=== PATIENT | female | born 1945 | race Caucasian/White ===

== ENCOUNTER 2017-03-08 06:55 | Day surgery (SDC) | payer MEDICARE, OTHER ==
[~2017-03-08] VITALS: Ht 167.6 cm; Wt 104.3 kg
[~2017-03-08 06:55] MED LIST: ALLEGRA ALLERGY60 MG PO; BACTRIM 400-801 EACH PO; COMBIVENT RESPIM4 GM INH; FENOFIBRATE160 MG PO; LEVOTHYROXINE125 MCG PO; METOPROLOL TART50 MG PO; MULTIVITAMINS1 EAC7 PO; OXYCODON-ACETA1 EAC2 PO; PAROXETINE HCL20 MG PO; PERCOCET 7.5-31 EACH PO; SULFAMETHOXAZO1 EAC1 PO; TRIAMTERENE-HC1 EAC1 PO; VITAMIN B12-FO1 EACH PO; ZYRTEC10 MG PO
--- NOTE | 2017-03-08 10:10 | NUR ---
03/08/17 1010 Antonella Hernandez 1004 PATIENT ARRIVES TO PACU WITH ORAL AIRWAY IN PLACE, OPENS EYES TO VERBAL STIMULI. MASK AT 12 LITERS. 1006 ORAL AIRWAY REMOVED. 1009 OXYGEN DECREASED TO 8LITERS VIA MASK. PATIENT SHAKES HEAD NO TO PAIN THEN BACK TO SLEEP.
[2017-03-08] MEDS ORDERED: OXYCODON-ACETA1 EAC2 PO (10:26)
[2017-03-08] MEDS ORDERED: MAPAP325 MG PO (10:26)
--- NOTE | 2017-03-08 10:47 | NUR ---
PT IS BACK TO DS FROM PACU. PT HAS PILLOW TO ABDOMEN IN CASE OF NEED TO COUGH. SISTER IS AT THE BEDSIDE. CALL LIGHT WITHIN REACH. NO C/O'S AT THIS TIME. WILL REASSESS WITHIN THE HOUR. WATER ON BEDSIDE TABLE.
--- NOTE | 2017-03-08 11:55 | NUR ---
PT SLEEP UPON ENTERING THE ROOM. PT'S SISTER IS AT THE BEDSIDE. PT DENIES BEING HUNGRY OR NEEDING TO URINATE. PT INFORMED THAT IN ORDER TO DC SHE NEEDS TO HAVE AT LEAST A SNACK AND URINATE AT LEAST 100 MLS. PT THEN ASKS FOR JELLO. PT'S SISTER STEPPED OUT OF ROOM FOR A WHILE TO WARM UP OUTSIDE. CALL LIGHT WITHIN REACH. NO OTHER C/O'S AT THIS TIME. WILL REASSESS WITHIN THE HOUR.
--- NOTE | 2017-03-08 12:42 | NUR ---
PT IS A&O READY TO GO HOME AND SLEEP IN HER OWN BED. SISTER IS AT THE BEDSIDE. CALL LIGHT WITHIN REACH. NO OTHER C/O'S AT THIS TIME. WILL REASSESS WITHIN THE HOUR.
--- NOTE | 2017-03-08 13:05 | NUR ---
LE 1255: PT ABLE TO VOID GREATER THAN 100ML. NOT ALL URINE MADE IT INTO THE HAT. PT HAS MET ALL DC CRITERIA. DC INSTRUCTIONS ARE GIVEN IN FRONT OF SISTER, QUESTIONS ARE ASKED AND ANSWERED. PT DRESSES HERSELF AND GIVEN A WHEELCHAIR RIDE TO CAR.
--- NOTE | 2017-03-08 13:12 | NUR ---
PT WELCOMED ME TO HER ROOM. HER SISTER FROM ID IS HERE FOR SUPPORT. SHE IS BACK TO HAVE ANOTHER HERNIA REPAIRED. SHE SEEMED TO HAVE A GOOD ATTITUDE, FEELING GOOD OTHERWISE, AND PLEASED HER SIS IS HERE. SHE SEEMED PREPARED, NO REAL QUESTIONS AND FELT CONFIDENT IN THE STAFF CARING FOR HER TODAY. PT REQUESTED PRAYER, WILL FOLLOW NEEDED
--- NOTE | 2017-03-10 10:32 | OR ---
[facility] [address] [place], [place] [address] Signed DATE OF SERVICE: 03/08/2017 PREOPERATIVE DIAGNOSES: Incisional hernia above the umbilicus. Obesity. POSTOPERATIVE DIAGNOSES: Incisional hernia above the umbilicus. Obesity PROCEDURE PERFORMED: Repair of incisional hernia. Implantation of Prolene mesh (underlay properitoneal technique). SURGEON: Norm Camejo MD. ANESTHESIA: General endotracheal (Norm Candelaria CRNA) and local 20 mL 0.25% Marcaine with epinephrine. INDICATION: This 71-year-old white woman has undergone incisional he rnia repair by me in the past and the area inferior to the umbilicus. This was performed a year ago in February 2016. She now notes a bulge well above the area of previous hernia repair. She has had no constipation or urinary outlet obstructive symptoms or chronic cough. She does have obesity weighing 240 pounds and 5 feet 5 inches tall with a BMI of 39.9. She is admitted at this time to undergo repair of this hernia. Understand the risks of bleeding, infection, recurrence and so on. FINDINGS: A distinct hernia sac was noted cephalad to the umbilicus proper. The area of previous mesh repair showed a firm fibrotic area at the region of the umbilicus and below it, which was very secure. The fascial defect in aggregate was probably 4-5 cm. The area of the properitoneal space was freed with peritoneal and omentum as a barrier to mesh to the intraabdominal contents. The mesh was secured in an underlay technique with interrupted Prolene sutures with Prolene pledgets. The resulting defect was less than 2 cm. DESCRIPTION OF PROCEDURE: The patient brought to the operating room, given a general endotracheal anesthetic. She received preoperative antibiotics. Sequential compression device, stockings, and heparin Electronically Signed By: NORM CAMEJO MD 03/10/17 1032 PATIENT NAME: STEVIE DE LA CRUZ OPERATIVE REPORT DATE OF : 45 PHYSICIAN: NORM CAMEJO MD REPORT #: [id number] REPORT IS CONFIDENTIAL AND NOT TO BE RELEASED WITHOUT AUTHORIZATION [facility] [address] [place], [place] [address] Signed subcutaneously. The abdomen was prepared with a chlorhexidine solu tion and draped sterilely. An incision was made cephalad to the umbilicus and dissection carried through the dermis and subcutaneous tissue were quickly encountered was a hernia sac. This was bluntly from surrounding soft tissue of the abdominal wall. Dissection was carried down to the fascial layer, where a firm fibrotic area of the umbilicus and inferior to it was noted. The area cephalad represented the hernia area. This was freed from the surrounding soft tissue more fully and the fascial edge is grasped with Anna clamps, and using blunt dissection. The properitoneal space developed. There were enough adhesions and scar tissue that entered to the hernia sac, did occur cephalad in this area, revealing underlying omentum. In those areas to the right side of the abdomen, the properitoneal space was more fully developed. Maintaining the peritoneal envelope as best could be. The hernia sac itself was in continuity with this of course and was separate and thickened. This was excised as reduction of this hernia sac might result in internal herniation. The defect of the peritoneal layer, was secured with 2-0 Vicryl suture and some underlying omentum as well, so as to provide a biologic barrier from mesh that would be implanted in the properitoneal spa c e. Once the properitoneal space was developed at least 3 cm circumferentially including superiorly a segment of Prolene mesh was cut to the oblong configuration and secured into the properitoneal space with interrupted 0 Prolene sutures. Prolene mesh pledgets were used as well. The multiple sutures used provided good fixation of the mesh in the properitoneal space without contact to the intraabdominal viscera. The edges of the fascia were closed as could be, but a resultant defect still remained was about 2 .5 cm or so. A drain was not deemed necessary or advisable in this situation. A 20 mL of 0.25% Marcaine with epinephrine was injected locally. The Jermain's layer was reapproximated with interrupted 2-0 Vicryl, closing the space. The skin was closed w i th running subcuticular 3-0 Vicryl. Steri-Strips were applied as was a Mepilex silver sponge dressing and an OpSite. An abdominal binder was applied as well. The patient was allowed to emerge from anesthesia, extubated, and taken to recovery room in good condition. BLOOD LOSS: Less than 20 cc. Sponge, needle, and instrument counts reported as correct x3. MD MANDA Mckenzie/Modl /[id number] Electronically Signed By: NORM CAMEJO MD 03/10/17 1032 PATIENT NAME: STEVIE DE LA CRUZ OPERATIVE REPORT DATE OF : 45 PHYSICIAN: NORM CAMEJO MD REPORT #: [id number] REPORT IS CONFIDENTIAL AND NOT TO BE RELEASED WITHOUT AUTHORIZATION [facility] [address] [facility] [place] [address] Signed cc: Pascual Salcedo Electronically Signed By: NORM CAMEJO MD 03/10/17 1032 PATIENT NAME: STEVIE DE LA CRUZ OPERATIVE REPORT DATE OF : 45 PHYSICIAN: NORM CAMEJO MD REPORT #: [id number] REPORT IS CONFIDENTIAL AND NOT TO BE RELEASED WITHOUT AUTHORIZATION
== END 2017-03-08 13:00 | disposition home or self-care (01) ==
LOC: DS 06:55
PROVIDERS: Surgery
PROC: 0WUF0JZ Supplement Abdominal Wall with Synthetic Substitute, Open Approach (ICD-10-PCS; principal; 2017-03-08 08:15)
DX: K43.2 Incisional hernia without obstruction or gangrene (principal); E66.9 Obesity, unspecified; G47.30 Sleep apnea, unspecified; I10 Essential (primary) hypertension; E03.9 Hypothyroidism, unspecified; Z68.39 Body mass index [BMI] 39.0-39.9, adult; Z90.49 Acquired absence of other specified parts of digestive tract; Z98.890 Other specified postprocedural states
CPT/HCPCS: 00750; 88300; C1781; J0330; J0690; J1100; J1644; J1885; J2250; J2405; J2704; J2765; J3010; J7120

== ENCOUNTER 2020-03-23 06:27 | Day surgery (SDC) | payer MEDICARE, OTHER ==
[~2020-03-23] VITALS: Ht 167.6 cm; Wt 100.7 kg
[~2020-03-23 06:27] MED LIST changes: +ATORVASTATIN CA80 MG PO; +FLUOXETINE HCL20 MG PO; -LEVOTHYROXINE125 MCG PO; +LEVOTHYROXINE150 MCG PO; +LIOTHYRONINE SO5 MCG PO; +MAPAP325 MG PO; +ZYLOPRIM300 MG PO
--- NOTE | 2020-03-23 08:20 | NUR ---
03/23/20 0820 Antonella Jackson 0812 PATIENT ARRIVES TO PACU UNRESPONSIVE TO VERBAL STIMULI. RESP EVEN AND UNLABORED, NC AT 2 LITERS. 0816 PATIENT IS SLOW TO FOLLOW COMMANDS, BUT ABLE TO REPOSITION SELF TO BACK. WARM BLANKETS GIVEN PER REQUEST. RESP EVEN AND UNLABORED, NC CONTINUED AT 2 LITERS. PASSING GAS. 0820 PATIENT RESTING WITH EYES CLOSED. RESP EVEN AND UNLABORED, NC OFF.
--- NOTE | 2020-03-23 18:52 | OR ---
[facility] [address] [place], [place] [address] Signed DATE OF OPERATION: 03/23/2020 SURGEON: Norm Camejo MD PREOPERATIVE DIAGNOSIS: Longstanding diarrhea (September 2019). No prior history of colonoscopy. POSTOPERATIVE DIAGNOSIS: Mild diffuse inflammation of colon, no specific colitis, no diverticulosis or polyps or cancer. PROCEDURE: Total colonoscopy to cecum with random biopsies. ANESTHESIA: Intravenous sedation with propofol infusion; Clary Abraham CRNA. INDICATION: This 74-year-old obese white woman is a patient DrNancy Salcedo and known to me from the past. She has had diarrhea beginning in September of 2019. She has had no associated bleeding. She has no prior history of colonoscopy. She does have family history of colon cancer in a paternal aunt. She is admitted at this time to undergo colonoscopy. She understands the risks of bleeding, infection, perforation. FINDINGS: The prep was good. The colon was rather redundant. Complete colonoscopy was undertaken to the cecum, however. There appeared to be mild edematous low-grade inflammation throughout. This may represent lymphocytic or microscopic colitis. There was no sign of matilde ulcerative colitis or anything of that sort. She had no sign of diverticulosis or polyps. Biopsies include the cecum, left colon, sigmoid, and rectum. PROCEDURE IN DETAIL: The patient was brought to the surgical endoscopy suite room #3 and placed in lateral decubitus position, given intravenous sedation with full cardiopulmonary monitoring by the html web developer based on her advanced ASA classification (3). After satisfactory sedation, an Olympus video colonoscope was passed in the rectum following normal rectal examination. The scope was manipulated throughout the colon with all due care. The colon was found to be rather redundant. Ultimately, the scope was passed to the cecum. Throughout the colon, there appeared to be a low-grade edematous appearance of the mucosa, but no sign of matilde colitis per se. Once the cecum was obtained, biopsies were Electronically Signed By: NORM CAMEJO MD 03/23/20 1852 PATIENT NAME: STEVIE DE LA CRUZ OPERATIVE REPORT DATE OF : 45 REPORT #: [id number] PHYSICIAN: NORM CAMEJO MD PCP: CARLOS SALCEDO MD REPORT IS CONFIDENTIAL AND NOT TO BE RELEASED WITHOUT AUTHORIZATION [facility] [address] [place] [id number] Signed obtained of the cecum and careful withdrawal of scope undertaken with random biopsies throughout including the right colon, left colon, sigmoid, and rectum. There was no sign of polyps or diverticular formation. Retroflexed view was normal except for some hemorrhoidal changes. The scope was removed, and the patient was taken to the recovery room in good condition. CONCLUDING DIAGNOSIS: May have low-grade inflammation throughout the colon, uncertain and awaiting pathology at this point. We will see the patient back in a few weeks and review the pathology report. Even if benign, we will make interventions to help ameliorate symptoms. MD MANDA Mckenzie/YVAN /[id number] cc: Carlos Salcedo MD Copies: CARLOS SALCEDO MD ~ Electronically Signed By: NORM CAMEJO MD 03/23/20 1852 PATIENT NAME: STEVIE DE LA CRUZ OPERATIVE REPORT DATE OF : 45 REPORT #: [id number] PHYSICIAN: NORM CAMEJO MD PCP: CARLOS SALCEDO MD REPORT IS CONFIDENTIAL AND NOT TO BE RELEASED WITHOUT AUTHORIZATION
--- NOTE | 2020-03-24 16:55 | PATH ---
[facility] [address] [facility] [place] [address] Signed SPECIMEN(S): A CECUM SPECIMEN(S): B DESCENDING SPECIMEN(S): C SIGMOID SPECIMEN(S): D RECTUM SPECIMEN SOURCE: A. CECUM B. DESCENDING C. SIGMOID D. RECTUM CLINICAL HISTORY: Colonoscopy. Preop: Diarrhea. Postop: Mild inflammation. MICROSCOPIC DESCRIPTION: Histologic sections of all submitted blocks are examined by light microscopy. These findings, together with the gross examination, support the pathologic diagnosis. FINAL PATHOLOGIC DIAGNOSIS: A. Colon, cecum, biopsy: - Lymphocytic colitis. - Negative for dysplasia or malignancy. B. Colon, descending, biopsy: - Lymphocytic colitis. - Negative for dysplasia or malignancy. C. Colon, sigmoid, biopsy: - Colonic mucosa with patchy increased intraepithelial lymphocytes. - Negative for active or chronic colitis. - Negative for dysplasia or malignancy. D. Rectum, biopsy: - Rectal mucosa with no histopathologic abnormality. - Negative for active, chronic, or microscopic colitis. - Negative for dysplasia or malignancy. COMMENT: Sections of the cecum and descending colon biopsies (A and B) demonstrate colonic mucosa with increased intraepithelial lymphocytes, surface mucosal injury, and increased lymphoplasmacytic inflammation within the lamina propria. No activity, evidence of chronicity, or granulomata is present. There is no subepithelial collagen band thickening. The findings are compatible with mild PATIENT NAME: STEVIE DE LA CRUZ PATHOLOGY DATE OF : 45 REPORT #: [id number] PHYSICIAN: BARBARAQuantapore PATHOLOGY PCP: CARLOS SHIRLEY MD REPORT IS CONFIDENTIAL AND NOT TO BE RELEASED WITHOUT AUTHORIZATION [facility] [address] [place], [place] [address] Signed lymphocytic colitis. Correlation with clinical findings is recommended. As part of [facility] Quality Improvement Program, this case was reviewed by another member of our pathology staff. NAL:NRT:cml:C2NR GROSS DESCRIPTION: Four specimens are received in four containers, labeled "MH." A. The specimen, labeled "MH, cecum colon biopsy," is received in formalin and consists of three jean soft tissue fragments that measure 0.3 cm in greatest dimension. The specimen is entirely submitted in cassette (A1). B. The specimen, labeled "MH, is descending colon biopsy," is received in formalin and consists of three jean soft tissue fragments that measure 0.2 cm in greatest dimension. The specimen is entirely submitted in cassette (B1). C. The specimen, labeled "MH, sigmoid colon biopsy," is received in formalin and consists of two jean soft tissue fragments that measure 0.2 cm in greatest dimension. The specimen is entirely submitted in cassette (C1). D. The specimen, labeled "MH, rectum biopsy," is received in formalin and consists of two jean soft tissue fragments that measure 0.2 cm in greatest dimension. The specimen is entirely submitted in cassette (D1). JS (under the direct supervision of a pathologist) The Gross Description was prepared using a voice recognition system. The report was reviewed for accuracy; however, sound-alike word errors, addition and/or deletions may occur. If there is any question about this report, please contact Client Services. PERFORMING LABORATORY: The technical component was performed by [facility], [address] [place] [id number] (Healthcare Social Worker: Marnie Mcclellan MD; CLIA# [id number]). Professional interpretation was performed by [facility], [address] [address] (CLIA# [id number]). Diagnostician: Mare Will MD Pathologist Electronically Signed 03/24/2020 PATIENT NAME: STEVIE DE LA CRUZ PATHOLOGY DATE OF : 45 REPORT #: [id number] PHYSICIAN: [facility] PCP: CARLOS SHIRLEY MD REPORT IS CONFIDENTIAL AND NOT TO BE RELEASED WITHOUT AUTHORIZATION [facility] [address] [place], [place] [address] Signed Copies: ~ PATIENT NAME: STEVIE DE LA CRUZ PATHOLOGY DATE OF : 45 REPORT #: [id number] PHYSICIAN: [facility] PATH[facility] PCP: CARLOS SHIRLEY MD REPORT IS CONFIDENTIAL AND NOT TO BE RELEASED WITHOUT AUTHORIZATION
== END 2020-03-23 09:05 | disposition home or self-care (01) ==
LOC: OPS 06:27 → DS 06:27 → OPS 06:45 → DS 06:45 → OPS 09:05
PROVIDERS: Surgery
PROC: 0DBN8ZX Excision of Sigmoid Colon, Via Natural or Artificial Opening Endoscopic, Diagnostic (ICD-10-PCS; 2020-03-23)
PROC: 0DBP8ZX Excision of Rectum, Via Natural or Artificial Opening Endoscopic, Diagnostic (ICD-10-PCS; 2020-03-23)
PROC: 0DBM8ZX Excision of Descending Colon, Via Natural or Artificial Opening Endoscopic, Diagnostic (ICD-10-PCS; 2020-03-23)
PROC: 0DBH8ZX Excision of Cecum, Via Natural or Artificial Opening Endoscopic, Diagnostic (ICD-10-PCS; principal; 2020-03-23 06:45)
DX: K52.832 Lymphocytic colitis (principal); I10 Essential (primary) hypertension; E03.9 Hypothyroidism, unspecified; G47.33 Obstructive sleep apnea (adult) (pediatric); E66.01 Morbid (severe) obesity due to excess calories; Z68.38 Body mass index [BMI] 38.0-38.9, adult; Z88.6 Allergy status to analgesic agent; Z79.899 Other long term (current) drug therapy
CPT/HCPCS: J2001; J2704; J7121

== ENCOUNTER 2021-08-19 11:37 | Observation (INO) | payer MEDICARE, OTHER ==
[~2021-08-19] VITALS: Ht 167.6 cm; Wt 100.7 kg
[2021-08-19] MEDS ORDERED: PAXIL10 MG PO (12:02)
--- NOTE | 2021-08-19 16:08 | CONS ---
[facility] [address] [place], [place] [address] Signed DATE OF CONSULTATION: 08/19/2021 CHIEF COMPLAINT: Left periumbilical swelling and pain. HISTORY OF PRESENT ILLNESS: Stevie García is a 76-year-old female who has had two prior periumbilical incisional hernias repaired with mesh with Dr. Castro. She has lost about 60 pounds over this last year. She is known to have a 10 mm fascial defect on the left side of the umbilicus. She was hoping to have that repaired at some point. Two days ago, she was carrying laundry around the house and felt pain and swelling in that area. She told me normally it goes back inside but at this time it would not go back inside. She finally came to the emergency room for evaluation. The ER doctor was not able to reduce it. In the meantime, her labs have come back along with the repeat CT scan. Of course, she had some colon stuck in this hernia. It is probably about [address] Castro is not available today. I was therefore asked to see her as a general surgeon on-call. PAST MEDICAL HISTORY: Hypothyroidism, hypertension, COPD, left periumbilical incisional hernia, eczema, and obesity. PAST SURGICAL HISTORY: Includes a cholecystectomy, abdominal hernia surgery x2 and basal cell carcinoma. SOCIAL HISTORY: She does not smoke or drink. She is . Her daughter is Malia Stahl at [phone] and Hua Elmore at [phone]. She is a retired banker. She prefers the [facility]. Dr. Nadia Frausto is her primary care provider. FAMILY HISTORY: None. REVIEW OF SYSTEMS: She had 10 systems reviewed and she told me she lost 60 pounds this last year. ALLERGIES: Aspirin, it worsens her eczema. MEDICATIONS: 1. Levothyroxine 150 mcg p.o. daily. 2. Metoprolol 50 mg p.o. b.i.d. 3. Triamterene/hydrochlorothiazide (37.5/25) one p.o. daily. 4. Allopurinol. Electronically Signed By: SHARIFA CARD MD 08/19/21 1608 PATIENT NAME: STEVIE DE LA CRUZ CONSULTATION DATE OF : 45 REPORT #: [id number] PHYSICIAN: SHARIFA CARD MD PCP: NADIA FRAUSTO MD REPORT IS CONFIDENTIAL AND NOT TO BE RELEASED WITHOUT AUTHORIZATION [facility] [address] [place] [address] Signed 5. Atorvastatin. 6. Liothyronine 5 mcg p.o. b.i.d. 7. Paxil 10 mg p.o. daily. PHYSICAL EXAMINATION: VITAL SIGNS: Her blood pressure is 153/66, heart rate 62, respiratory rate 16, temperature is 98.5. There was no O2 saturation recorded. She is 5 feet 6 inches at 100 kg. GENERAL: Stevie is a 76-year-old female lying supine in her ER bed watching TV. She does not appear systemically ill or toxic. LUNGS: Clear to auscultation bilaterally. HEART: Regular rate and rhythm without murmurs. ABDOMEN: Obese, but soft with a 4 cm subcutaneous lump to the left of the umbilicus. It is not reducible. It is a little tender. LABORATORY DATA: Her white blood count 9.9, neutrophils 73. Potassium 3.3, BUN 24, creatinine 1.03, glucose 127. Urinalysis negative. COVID test was negative. RADIOGRAPHIC STUDIES: I looked at the CT scan from 2019 and today. She now has a left periumbilical incarcerated hernia containing what appears to be the transverse colon. The small bowel seemed to be unremarkable. ASSESSMENT AND PLAN: Stevie García is a 76-year-old female who presents with an incarcerated symptomatic left periumbilical incisional hernia. I explained to Stevie we need to take over to operating room and repair that. We may or may not use mesh depending on intraoperative findings and the condition of the bowel. We will make no effort to perform a very large complex hernia surgery today. Our goal is to get her out of trouble and out of the bowel obstruction. We have reviewed the expected intraop and postop course. We will keep her overnight at least to see how she does with her diet and so forth. There is risk including, but not limited to bleeding, infection, scarring, change in contour of the skin, damage to bowel, infection of mesh requiring removal, recurrent hernias and chronic pain. She has expressed understanding and would like to proceed. Sharifa Card MD ALB/MODL /[id number] Electronically Signed By: SHARIFA CARD MD 08/19/21 1608 PATIENT NAME: STEVIE DE LA CRUZ CONSULTATION DATE OF : 45 REPORT #: [id number] PHYSICIAN: SHARIFA CARD MD PCP: NADIA FRAUSTO MD REPORT IS CONFIDENTIAL AND NOT TO BE RELEASED WITHOUT AUTHORIZATION [facility] [address] [place], [place] [address] Signed cc: MD Dr. Nadia Bo Copies: SHARIFA CARD MD ~ Electronically Signed By: SHARIFA CARD MD 08/19/21 1608 PATIENT NAME: STEVIE DE LA CRUZ CONSULTATION DATE OF : 45 REPORT #: [id number] PHYSICIAN: SHARIFA CARD MD PCP: NADIA FRAUSTO MD REPORT IS CONFIDENTIAL AND NOT TO BE RELEASED WITHOUT AUTHORIZATION
--- NOTE | 2021-08-19 16:15 | NUR ---
08/19/21 1615 Sheets,Stacy 1559 PT ARRIVED TO PACU, PT REACTIVE TO TACTILE STIMULI. PETIT REMOVED BY OR STAFF. RESP EVEN AND UNLABORED. PT REORIENTED TO PACU AND VSS.
--- NOTE | 2021-08-19 18:15 | NUR ---
PT. ARRIVED VIA STRETCHER FROM PACU. REPORT RECEIVED FROM RN. PT. IS ALERT AND ORIENTED. SHE IS ON 3L NC AND 02 SAT IS 100% TITRATED TO 2L. O2 SAT MAINTAINED AND TAKEN OFF OF O2. SON AND DIL ARE IN THE ROOM. ABDOMINAL INCISION SITE DRESSING IS C.D.I. ON TELE. #3 AND IN AFIB RHYTHM. HR CONTROLLED. SCD'S IN PLACE. VITALS STABLE AND PT. DENIES PAIN. IV SITE WNL AND FLUSHES WELL. DISCUSSED SAFETY, POC, NUTRITION AND MEDS. LEFT RESTING WITH CALL LIGHT IN REACH.
--- NOTE | 2021-08-19 18:52 | NUR ---
PT. AMBULATED WITH SBA TO BATHROOM AND TOLERATED WELL. DENIES PAIN. ABDOMINAL DRESSING CDI. BOWELTONES HYPOACTIVE. PT. IS NOT PASSING GAS AT THIS TIME. VITALS STABLE. PT ASSISTED WITH ICE PACK, NEW BEDDING AND WATER. LEFT RESTING WITH CALL LIGHT IN REACH.
--- NOTE | 2021-08-19 19:15 | NUR ---
REPORT RECEIVED FROM ADI NOWAK. IS RESTING ON BED WHEN THIS RN INTRODUCED, ASKING FOR ICE, THIS GIVEN TO PT SHE IS FULL LIQUIDS
--- NOTE | 2021-08-19 19:28 | NUR ---
received report from Marlys NOWAK, pt returned from surgery will need post op vitals continued, on full liquids. introduced at bedside, pt asking for ice chips. informed pt I would return to do vitals and assessment.
--- NOTE | 2021-08-19 19:42 | NUR ---
CALLED TO NOTIFY OF RECENT LABS, AND PT CURRENTLY IN NSR ON TELEMETRY, AND TO CLARIFY IF HE WANTED A HOSPITALIST CONSULT DAYSHIFT WAS UNSURE. CONFIRMED HE DOES NOT WANT A HOSPITALIST CONSULT AT THIS TIME.
--- NOTE | 2021-08-19 19:46 | NUR ---
IN ROOM TO DO HOURLY ASSESSMENT, [employer]LE SECURITY CONSULTANT IN ROOM TO DO VITALS, THIS IS AN HOURLY POST OP CHECK. PT IS RESTING COMFORTABLY ON BED, DENIES ANY PAIN AT THIS TIME. PT HAS REPORTEDLY PASSED GAS ONCE. BOWEL TONES REMAIN HYPOACTIVE ALL FOUR QUADS. ABDOMINAL DRESSING IS CLEAN, DRY AND INTACT. PT REMAINS ON TELE 3. MAINTENANCE FLUIDS INFUSING. IV SITE LEFT AC WNL. PT GCS IS 4-5-6, TOTAL 15.
--- NOTE | 2021-08-19 20:38 | NUR ---
IN ROOM TO DO 4TH HOURLY POST OP ASSESSMENT. PT CONTINUES TO DENY NEEDING ANYTHING ELSE FOR PAIN AT THIS TIME. DRESSING IS DRY AND INTACT TO ABDOMEN. BOWEL SOUNDS REMAIN HYPOACTIVE. PT HAS WATER AND IS OK TO DRINK WATER. PT HAS BEEN ABLE TO STAND WITH STANDBY ASSIST. GCS 15, 4-5-6.
--- NOTE | 2021-08-19 21:48 | NUR ---
PATIENT APPEARS TO BE RESTING ON BED, RESPIRATIONS EVEN UNLABORED. MAINTENANCE FLUIDS INFUSING. SCDS IN PLACE AND TUBE REPAIRER LIGHT INREACH.
--- NOTE | 2021-08-19 21:59 | EKG ---
[facility] [address] [facility] [place] [address] Signed Sinus bradycardia Otherwise normal ECG When compared with ECG of 18-MAR-2020 16:11, Nonspecific T wave abnormality no longer evident in Anterior leads Confirmed by RENEE VICTORIA MD ([id number]) on 08/19/2021 9:59:26 PM Electronically Signed By: RENEE VICTORIA MD 08/19/21 2159 PATIENT NAME: STEVIE DE LA CRUZ JO Electrocardiogram DATE OF : 45 PHYSICIAN: RENEE VICTORIA MD REPORT #: [id number] REPORT IS CONFIDENTIAL AND NOT TO BE RELEASED WITHOUT AUTHORIZATION
--- NOTE | 2021-08-19 22:00 | EKG ---
[facility] [address] [facility] [place] [address] Signed Atrial fibrillation Abnormal ECG When compared with ECG of 19-AUG-2021 14:21, (Unconfirmed) Atrial fibrillation has replaced Sinus rhythm Confirmed by RENEE VICTORIA MD ([id number]) on 08/19/2021 9:59:45 PM Electronically Signed By: RENEE VICTORIA MD 08/19/212199 PATIENT NAME: STEVIE DE LA CRUZ JO Electrocardiogram DATE OF : 45 PHYSICIAN: RENEE VICTORIA MD REPORT #: [id number] REPORT IS CONFIDENTIAL AND NOT TO BE RELEASED WITHOUT AUTHORIZATION
--- NOTE | 2021-08-19 23:29 | NUR ---
WENT IN TO CHECK ON PT. SHE IS ASLEEP, CAN BE HEARD SNORING REMAINS ON CPOX. ROOM AIR SATS LOW TO MID 90'S RR 16 EVEN NONLABORED. CALL LIGHT IN REACH.
--- NOTE | 2021-08-20 00:34 | NUR ---
CHECKED ON PT, HER IV PUMP IS BEEPING. ASSESS SITE IT IS WNL, SITE IS IN HER LEFT AC AND IV PUMP BEEPS WHEN SHE BENDS HER ARM. POSITINED HER LEFT ARM ON PILLOW. INFORMED PT SHE IF THE BEEPING BOTHERS HER WE CAN SWITHC HER IV SITE TO A DIFFERENT POSITION. PT DENIES ANY PAIN. THIS RN REFRESHED HER ICE PACK FOR HER ABDOMEN. REFRESHED DRINKING WATER. CALL LIGHT IN REACH.
--- NOTE | 2021-08-20 01:07 | NUR ---
PT IS ASLEEP, CAN SEE HIM FIGETING AROUND IN BED, MOVING FEET AND ARMS SLIGHTLY. MOUTH OPEN, RESPIRATIONS EVEN, UNLABORED.
--- NOTE | 2021-08-20 02:22 | NUR ---
PT STATED SHE IS PASSING GAS
--- NOTE | 2021-08-20 03:41 | NUR ---
WENT TO CHECK ON PT, SHE IS ASLEEP, SNORING REMAINS ON CPOX, SATS 95%. MAINTENANCE FLUIDS INFUSING. CALL LIGHT IN REACH.
--- NOTE | 2021-08-20 06:36 | NUR ---
PT WAS ADMITTED FOR POST HERNIA REPAIR AND HAS DECLINED NEED FOR PAIN MEDS ALL NIGHT. PT HAS BEEN UP AMBULATING TO RESTROOM AT LEAST TWICE TO VOID, NO BM BUT IS NOW PASSING GAS MORE OFTEN. BOWEL SOUNDS REMAIN HYPOACTIVE. PT WANTS TO GO HOME TODAY. SCDS REMAIN ON VITALS WNL. ABD DRESSING CLEAN DRY INTACT.
--- NOTE | 2021-08-20 07:06 | OR ---
[facility] [address], [place] [address] Signed DATE OF OPERATION: 08/19/2021 SURGEON: Sharifa Card MD PREOPERATIVE DIAGNOSIS: Recurrent incarcerated left periumbilical incisional hernia (2 x 3 cm). POSTOPERATIVE DIAGNOSIS: Recurrent incarcerated left periumbilical incisional hernia (2 x 3 cm). PROCEDURE: Primary incisional herniorrhaphy. ESTIMATED BLOOD LOSS: None. INDICATIONS: Stevie is a 76-year-old female who has had two periumbilical hernia repairs with Dr. Csatro using Prolene mesh. She had developed a recurrence on the left side. She has made efforts to lose 60 pounds over this last year with hopes of repairing that in the near future. Two days ago, she was lifting the laundry at home and felt a lump come through the area of the hernia. She said normally it goes back inside. On this occasion, it would not go back inside. It was causing her pain, so she finally came to the emergency room for evaluation. It could not be reduced in the emergency room. White count was normal. CT scan showed her transverse colon herniated through this fascial defect. Stool in the colon prior to the hernia and no stool in the colon afterwards. Dr. Castro was not available and so I was asked to see her as a general surgeon on-call. I had met with Stevie in the emergency room. We had reviewed her current findings. I explained to her the need to take her to the operating room expeditiously with a vertical periumbilical incision in order to reduce that hernia. I explained that we generally do not use mesh to any significant degree in these more acute cases unless we feel it is extremely warranted. Our goal is to get her out of her bowel obstruction and get the fascial defect closed. She could always seek a more extensive elective hernia repair in the future if needed. She understands the nature of that surgery as we described. There is risk including, but not limited to bleeding, infection, scarring, change in contour of the skin, damage to bowel, infection of suture and/or recurrent hernias and chronic pain. She had expressed understanding and wished to proceed. PROCEDURE NOTE: Stevie was brought from the emergency room over to our OR area. It was quite clear the Electronically Signed By: SHARIFA CARD MD 08/20/21 0706 PATIENT NAME: STEVIE DE LA CRUZ OPERATIVE REPORT DATE OF : 45 REPORT #: [id number] PHYSICIAN: SHARIFA CARD MD PCP: NADIA FRAUSTO MD REPORT IS CONFIDENTIAL AND NOT TO BE RELEASED WITHOUT AUTHORIZATION [address] [id number] Signed hernia on the left side of her umbilicus. After this, she was taken in the operating room and placed in a supine position under general endotracheal tube anesthesia. She was given preoperative antibiotics along with subcutaneous heparin. SCDs were utilized. A Morse catheter was inserted with return of clear yellow urine without difficulty. She was then prepped and draped in the usual sterile fashion. Now that she was pharmacologically paralyzed, we were able to reduce that hernia with [id number] pressure. After this, we utilized her periumbilical vertical incision. We carried that down through the tissues with the help of the cautery. The entire hernia sac was excised. Her fascial defect was 2 cm wide by 3 cm tall. It took just a few minutes to take down some of the omentum around the circumference of the fascial defect. We could easily feel the two separate pieces of mesh from her previous hernia. As is common, she herniated along the edge of the mesh. We then closed the fascial defect vertically with interrupted [id number] and simple #1 Prolene sutures. Local anesthetic was injected into the wound. The wound was irrigated and suctioned out until clear. We closed the dermis with interrupted 3-0 subcuticular Monocryl sutures. The skin edges were then reapproximated with jose. Dry gauze and tape were then applied. She was weaned from her anesthesia, extubated in the OR, and taken to the recovery room in stable condition. In the recovery room, then we removed her Morse catheter. Sharifa Card MD ALB/MODL /[id number] cc: MD Dr. Nadia Bo Copies: SHARIFA CARD MD ~ Electronically Signed By: SHARIFA CARD MD 08/20/21 0706 PATIENT NAME: STEVIE DE LA CRUZ OPERATIVE REPORT DATE OF : 45 REPORT #: [id number] PHYSICIAN: SHARIFA CARD MD PCP: NADIA FRAUSTO MD REPORT IS CONFIDENTIAL AND NOT TO BE RELEASED WITHOUT AUTHORIZATION
--- NOTE | 2021-08-20 07:45 | NUR ---
REPORT RECEIVED FROM NIGHT RN AND PT. CARE RESUMED. PT. IS ALERT AND ORIENTED TO ALL. SHE DENIES PAIN AT THIS TIME. ABDOMINAL DRESSING IS C.D.I. O2 SAT IS 98% ON 1L NC AND O2 TAKEN OFF. IV SITE WNL AND FLUSHES WELL. DISCUSSED AMBULATING DIET, MEDS, AND DISCHARGE PLAN. LEFT RESTING WITH CALL LIGHT IN REACH.
[2021-08-20] MEDS ORDERED: PAXIL10 MG PO (10:15)
[2021-08-20] MEDS ORDERED: HYDROCODON-ACE1 EAC8 PO (10:16)
--- NOTE | 2021-08-20 11:12 | NUR ---
MED REC COMPLETE
--- NOTE | 2021-08-20 11:25 | NUR ---
ALL DISCHARGE INSTRUCTIONS REVIEWED AND QUESTIONS ANSWERED. VITALS STABLE AND PT. DENIES PAIN. 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
== END 2021-08-20 11:20 | disposition home or self-care (01) ==
LOC: ED 11:37 → MS 11:39
PROVIDERS: ADMIT Colon & Rectal Surgery; ATTEND Colon & Rectal Surgery
PROC: 0WQF0ZZ Repair Abdominal Wall, Open Approach (ICD-10-PCS; principal; 2021-08-19 14:38)
DX: K43.0 Incisional hernia with obstruction, without gangrene (principal); E03.9 Hypothyroidism, unspecified; I10 Essential (primary) hypertension; J44.9 Chronic obstructive pulmonary disease, unspecified; Z20.822 Contact with and (suspected) exposure to COVID-19
CPT/HCPCS: 74177; 80048; 81001; 83735; 84100; 84484; 85025; 93005; 93010; 94762; C9803; J0330; J0690; J1100; J1644; J1885; J2250; J2405; J2704; J2765; J3010; J7040; J7121; Q9967; U0003

== ENCOUNTER 2022-04-13 12:47 | Emergency (ER) | payer MEDICARE, OTHER ==
[~2022-04-13] VITALS: Ht 167.6 cm; Wt 95.7 kg
[~2022-04-13 12:47] MED LIST changes: +HYDROCODON-ACE1 EAC8 PO; +PAXIL10 MG PO
== END 2022-04-13 19:10 | disposition home or self-care (01) ==
LOC: ED 12:47
DX: U07.1 COVID-19 (principal); N17.9 Acute kidney failure, unspecified; E03.9 Hypothyroidism, unspecified; I10 Essential (primary) hypertension; J44.9 Chronic obstructive pulmonary disease, unspecified; Z87.891 Personal history of nicotine dependence; Z88.6 Allergy status to analgesic agent; Z79.899 Other long term (current) drug therapy
CPT/HCPCS: 36415; 71045; 80053; 81001; 83735; 85025; 87088; 96360; 96361; 99285-25; J7030; J7040

== ENCOUNTER 2022-09-22 12:23 | Emergency (ER) | payer MEDICARE, OTHER ==
[~2022-09-22] VITALS: Ht 167.6 cm; Wt 95.2 kg
== END 2022-09-22 14:41 | disposition home or self-care (01) ==
LOC: ED 12:23
DX: S83.91XA Sprain of unspecified site of right knee, initial encounter (principal); X58.XXXA Exposure to other specified factors, initial encounter; E03.9 Hypothyroidism, unspecified; I10 Essential (primary) hypertension; J44.9 Chronic obstructive pulmonary disease, unspecified; Z87.891 Personal history of nicotine dependence; Z88.6 Allergy status to analgesic agent; Z79.899 Other long term (current) drug therapy
CPT/HCPCS: 73560; 93971; 99284-25

== ENCOUNTER 2023-08-06 11:00 | Emergency (ER) | payer MEDICARE, OTHER ==
[~2023-08-06] VITALS: Ht 167.6 cm; Wt 101.8 kg
[2023-08-06 11:57] LABS: BILIRUBIN, URINE NEGATIVE (negative); BLOOD/HGB, URINE TRACE-I (Negative); KETONE, URINE NEGATIVE (Negative); LEUK ESTERASE, URINE TRACE (negative); NITRITE, URINE NEGATIVE (negative)
[2023-08-06 12:04] LABS: BACTERIA, URINE RARE /hpf (negative); CASTS, URINE NONE SEEN \\lpf; COLLECTION TYPE, URINE CLEAN CATCH; CRYSTALS, URINE NONE SEEN (0-1+); EPITHELIAL CELLS, URINE SQUAMOUS 2+ /lpf (0-1+); REFLEX CULTURE, URINE No (No)
[2023-08-06 12:40] LABS: BASOPHILS 0.8 % (0-2); EOSINOPHILS 0.2 % (0-6); HEMATOCRIT 42.9 % (35.0-50.0); HEMOGLOBIN 13.6 g/dL (12.0-18.0); LYMPHOCYTES 26.7 % (24-44); MCH 30.7 (27-36); MCHC 31.8 g/dl (30-36); MCV 96.4 fl (81-99); MONOCYTES 11.7 % (0-12); NEUTROPHILS 60.6 % (39-80); PLATELET COUNT 227 K/uL (140-440); RBC 4.45 M/ul (4.3-5.7)
[2023-08-06 12:55] LABS: ALBUMIN 3.5 g/dL (3.4-5.0); ALBUMIN/GLOBULIN RATIO 0.81 (1.1-2.4); BILIRUBIN, TOTAL 1.3 ng/dL (0.2-1.0); BUN/CREATININE RATIO 19.69 (6.0-28.6); CALCIUM 9.3 mg/dL (8.5-10.1); CREATININE, SERUM 1.32 mg/dL (0.55-1.02); PROTEIN, TOTAL 7.8 g/dL (6.4-8.2)
[2023-08-06 13:39] VITALS: BP 136/65
== END 2023-08-06 13:40 | disposition home or self-care (01) ==
LOC: ED 11:00
PROVIDERS: Emergency Medicine
DX: I12.9 Hypertensive chronic kidney disease with stage 1 through stage 4 chronic kidney disease, or unspecified chronic kidney disease (principal); N18.9 Chronic kidney disease, unspecified; J44.9 Chronic obstructive pulmonary disease, unspecified; Z87.891 Personal history of nicotine dependence; Z88.8 Allergy status to other drugs, medicaments and biological substances; Z88.6 Allergy status to analgesic agent; Z79.890 Hormone replacement therapy; Z79.899 Other long term (current) drug therapy
CPT/HCPCS: 36415; 80053; 81001; 83690; 85025; 99283

== ENCOUNTER 2024-07-21 10:33 | Emergency (ER) | payer MEDICARE, OTHER ==
[~2024-07-21] VITALS: Ht 167.6 cm; Wt 105.4 kg
[2024-07-21] MEDS ORDERED: ELIQUIS5 MG PO (11:05)
[2024-07-21 11:19] VITALS: BP 120/63
[2024-07-21] MEDS ORDERED: CLINDAMYCIN HC150 MG PO (11:26)
[2024-07-21] MEDS ORDERED: DOXYCYCLINE HY100 MG PO (11:26)
[2024-07-21] MEDS ORDERED: DIFLUCAN100 MG PO (11:26)
== END 2024-07-21 11:35 | disposition home or self-care (01) ==
LOC: ED 10:33
DX: M79.3 Panniculitis, unspecified (principal); I10 Essential (primary) hypertension; J44.9 Chronic obstructive pulmonary disease, unspecified; E03.9 Hypothyroidism, unspecified; Z87.891 Personal history of nicotine dependence; Z88.8 Allergy status to other drugs, medicaments and biological substances; Z88.6 Allergy status to analgesic agent; Z79.890 Hormone replacement therapy; Z79.01 Long term (current) use of anticoagulants; Z79.899 Other long term (current) drug therapy
CPT/HCPCS: 99283